=== PATIENT | female | born 1990 | race Caucasian/White ===

== ENCOUNTER 2020-08-01 14:25 | Outpatient (CLI) | payer OTHER, SELFPAY ==
--- NOTE | ~2020-08-01 | MMUS_ITS ---
EXAMINATION: MM diagnostic tang BI w james, US breast RT limited HISTORY: There's practitioner feels a lump in the upper outer quadrant of the right breast. TECHNIQUE: ML, MLO and craniocaudal 3-D tomosynthesis images of both breasts were performed and synth etic 2-D images were generated. Additional MLO and cc views with marker over lower outer quadrant lef t breast skin lesion. CAD analysis was submitted and interpreted. High resolution upper outer quadran t right breast ultrasound was performed. COMPARISON: None BREAST PARENCHYMAL COMPOSITION: The breasts are heterogeneously dense, which may obscure small masses . FINDINGS: MAMMOGRAPHIC FINDINGS: No suspicious mass or architectural distortion, malignant calcification, skin thickening or retractio n is detected. ULTRASOUND: There is no evidence of focal abnormal solid or cystic lesion in the upper outer quadrant of the righ t breast. IMPRESSION: 1. No mammographic evidence of malignancy 2. Routine annual mammographic screening is recommended beginning at age 40 BI-RADS Category 1: Negative Reviewed, dictated and finalized at location A. IMPRESSION: 1. No mammographic evidence of malignancy 2. Routine annual mammographic screening is recommended beginning at age 40 BI-RADS Category 1: Negative
== END 2020-08-01 14:26 | disposition home or self-care (01) ==
PROVIDERS: PCP Nurse Practitioner Obstetrics & Gynecology; Visit Provider Nurse Practitioner Obstetrics & Gynecology
DX: N63.11 Unspecified lump in the right breast, upper outer quadrant (principal); Z11.51 Encounter for screening for human papillomavirus (HPV); Z12.4 Encounter for screening for malignant neoplasm of cervix
CPT/HCPCS: 76642; 77062; 77066; G0279

== ENCOUNTER → 2021-02-07 00:31 | Outpatient (CLI) | payer OTHER, SELFPAY ==
[2021-02-07 17:04] LABS: SARS-CoV-2 RNA PCR Negative
== END ==
PROVIDERS: PCP Nurse Practitioner Obstetrics & Gynecology; Visit Provider Obstetrics & Gynecology Gynecologic Oncology
DX: Z01.812 Encounter for preprocedural laboratory examination (principal); Z20.822 Contact with and (suspected) exposure to COVID-19
CPT/HCPCS: C9803; U0003; U0005

== ENCOUNTER 2021-02-07 08:57 | Outpatient (CLI) | payer OTHER, SELFPAY ==
[2021-02-07 09:24] LABS: Hematocrit 37.8 % (37.0-47.0); Hemoglobin 12.4 g/dL (12.0-15.0); Mean Corpuscular HGB Conc 32.8 g/dl (32-36); Mean Corpuscular Hemoglobin 29.2 pg (26-34); Mean Corpuscular Volume 89.2 fl (80-100); Mean Platelet Volume 10.6 fl (7.4-10.4); Platelet Count Result 200 k/mm3 (150-375); Red Blood Count 4.24 M/mm3 (4.2-5.4); Red Cell Distribution Width 13.1 % (11.5-14.5); White Blood Count 4.6 K/mm3 (4.5-10.0)
== END 2021-02-07 08:58 | disposition home or self-care (01) ==
LOC: ANHLAB 08:59
PROVIDERS: PCP Nurse Practitioner Obstetrics & Gynecology; Visit Provider Obstetrics & Gynecology Gynecologic Oncology
DX: Z01.812 Encounter for preprocedural laboratory examination (principal); N92.0 Excessive and frequent menstruation with regular cycle; Z30.2 Encounter for sterilization
CPT/HCPCS: 36415; 85027; 86850; 86900; 86901; C9803; U0003; U0005

== ENCOUNTER 2021-02-10 02:41 | Day surgery (SDC) | payer OTHER, SELFPAY ==
[2021-02-03 09:40] VITALS: BMI 21.9
[2021-02-10] VITALS (8 sets, daily range): BP systolic 100–114; BP diastolic 47–72; PULSE 59–109; RESP 12–19; TEMP 36.4; O2SAT 100
[2021-02-10] MEDS: ACETAMINOPHEN 500 MG TABLET 1000 MG PO (11:23)
[2021-02-10] MEDS: GABAPENTIN 300 MG CAPSULE PO (11:23)
[2021-02-10] MEDS: LACTATED RINGERS 1,000 ML 30 ML IV CONT ×2 (11:49→15:11)
--- NOTE | 2021-02-10 12:09 | WPDHPUPDATE1 ---
History and Physical Update Update Date/Time: 02/10/21 12:09 History and Physical has been reviewed, including an updated exam of the patient. There are NO changes in the patient's condition. Risks, benefits, and alternatives have been discussed and questions answered. Patient agrees to proceed with procedure.
--- NOTE | 2021-02-10 12:36 | PM.IMHP ---
H&P: HPI History of Present Illness Date/Time: 02/10/21 12:36 Chief Complaint: I'm here for my surgery Narrative: Patient presents desiring permanent sterilization and treatment for heavy periods. Review of Systems Review of Systems: All systems reviewed & are unremarkable except as noted in HPI and below PMFSH Past Medical History Medical History (Updated 02/10/21 @ 12:38 by Gilda Arambula DO) Heavy menstrual bleeding Social History Social History Smoking status: Never smoker Alcohol intake: never Substance use: never Substance use type: does not use Living arrangements: with family Spiritual care concerns: No Meds Home Medications and Allergies Home Medications Medication Instructions Recorded Confirmed Type No Home Medications 02/03/21 02/10/21 History Allergies Allergy/AdvReac Type Severity Reaction Status Date / Time No Known Allergies Allergy Verified 02/10/21 11:20 Vital Signs Vital Signs - 24 hr 02/10/21 11:35 Temperature 36.4 C L Pulse Rate 68 Respiratory Rate 16 Blood Pressure 100/64 Pulse Oximetry 100 Assessment and Plan Assessment and plan (1) Admission for sterilization: Code(s): Z30.2 - Encounter for sterilization Status: Acute (2) Heavy menstrual bleeding: Code(s): N92.0 - Excessive and frequent menstruation with regular cycle Status: Acute Assessment and Plan: Diagnostic laparoscopy, bilateral salpingectomy, hysteroscopy, D&C with Novasure ablation
--- NOTE | 2021-02-10 12:44 | P.PNAN_ITS ---
Anes - Initial Pre Proc Eval Procedure: Operation Date: 02/10/21 13:30 Proposed Procedures p Hysteroscopy, Dilation and Curettage, Endometrial Novasure Ablation - Gilda Arambula DO s Diagnostic Laparoscopy, Bilateral Salpingectomy - Gilda Arambula DO Date/Time: 02/10/21 12:44 Surgeon: Gilda Arambula DO Pre Op Diagnosis: Desired Sterility, Heavy Menstrual Bleeding Patient Data Age: 30 Gender: F Height: 1.57 m Weight: 55.1 kg Last Vital Signs Temp 97.5 F L 02/10/21 11:35 Pulse 68 02/10/21 11:35 Resp 16 02/10/21 11:35 BP 100/64 02/10/21 11:35 Pulse Ox 100 02/10/21 11:35 Allergies Allergy/AdvReac Type Severity Reaction Status Date / Time No Known Allergies Allergy Verified 02/10/21 11:20 Home Medications Medication Instructions Recorded Confirmed Type No Home Medications 02/03/21 02/10/21 History Patient hx anesthesia problems: none Family hx anesthesia problems: none Results Review: All pre-operative results and documents have been reviewed as part of the pre-operative evaluation. [facility] Past Medical History Medical History (Updated 02/10/21 @ 12:45 by Raul Cote MD) Healthy adult Heavy menstrual bleeding Social History Social History Smoking status: Never smoker Alcohol intake: never Substance use: never Substance use type: does not use Living arrangements: with family Spiritual care concerns: No Anes - Eval Final PreProcedure Day of Procedure 02/10/21 12:44 Patient weight: normal Heart: regular rate and rhythm Lungs: clear to auscultation Airway: Mallampati scale class II Neurological: alert and oriented Last oral intake: >/= 8 hours ASA classification: I Emergent: no Anesthetic plan: proceed Anesthesia type and monitoring: general GIVS and standard monitoring Results Review: All pre-operative results and documents have been reviewed as part of the pre-operative evaluation. Informed Consent: The patient's anesthetic plan and its attendant risks and benefits were discussed with the patient/family/POA. Questions were solicited and answers provided to the satisfaction of the patient/family/POA.
--- NOTE | 2021-02-10 13:12 | SUR.PREOP ---
Resting without complaints or needs. Voices understanding of delay.
[2021-02-10] MEDS: BUPIVACAINE HCL 0.25% PF 30 ML VIAL INFILTRATE (14:43)
--- NOTE | 2021-02-10 15:08 | W.PM.PROC2 ---
Procedure Note - Detailed Date of Procedure 02/10/21 Pre-op Diagnosis Desired Sterility, Heavy Menstrual Bleeding Post-op Diagnosis same Procedure Performed Diagnostic laparoscopy, bilateral salpingectomy, hysteroscopy, D&C, Novasure ablation Surgeon Gilda Arambula DO [employer] Michelle Anesthesia general Indications Heavy menstrual bleeding, desires permanent sterilization Findings Normal appearing vulva and vaginal canal. Normal, small cervix. Internally, the bowel and pelvic organs were unremarkable. There was a single endometriotic looking bleb on the posterior side of the left broad ligament. There were also some fibrotic type areas on the left sidewall but no significant adhesions or lesions. Description of Procedure The patient was taken to the operating room where she was placed under general anesthesia. She was prepped and draped in the dorsal lithotomy position. No preoperative antibiotics were indicated. A timeout was performed. A peter was placed. A speculum was placed in the vagina and the cervix visualized. The anterior lip was grasped with a long Allis clamp. A Kroner uterine manipulator was placed. Gloves were changed and attention was then turned to the abdomen. The skin above the umbilicus was grasped with penetrating towel clamps. The area was injected and incised. A Veress needle was placed and a saline water drop test confirmed intraperitoneal placement. CO2 insufflation was started and the abdomen was brought up to 12 mm Hg. The Veress needle was then replaced with an Optiview trocar and there was no evidence of bowel or vascular injury. The patient was placed in steep Trendelenburg. Additional trocar sites were identified, injected and incised. 2 additional 5 mm trocars were introduced under direct visualization. The right tube was elevated with a grasper and cauterized and transected off. It was passed off through the assist port. The left tube was removed in the same fashion. The dark bleb noted as above was cauterized. The instruments and trocars were removed. The CO2 was allowed to escape. The incisions were closed with 4-0 subcuticular monocryl and steri-strips. The uterine manipulator was removed and the cervix dilated up to accommodate the myosure scope. The hysteroscope was introduced and the uterine cavity was noted to be long but of normal contour and shape. The uterus sounded to 12 cm. The cervix was 5.5 cm. A curettage was performed. The Novasure was then introduced and was activated at 86 rahman for 66 seconds. The device was removed and allowed to cool. All fluid and clots were wiped clean of the uterine cavity. The patient was taken to the recovery room in stable condition. All instrument and sponge counts were correct at the conclusion of the procedure. Implants None Estimated Blood Loss 10 IV Fluids 1,000 Urine Output 20 Drains No Packing No Pathology yes Complications No immediate complications Condition stable Disposition PACU
[2021-02-10] MEDS: fentaNYL CITRATE INJ (*CRX) 100 MCG/2 ML VIAL 25 MCG IV PUSH (15:46)
--- NOTE | 2021-02-16 07:24 | WPDHPUPDATE1 ---
History and Physical Update Update Date/Time: 02/16/21 07:24 History and Physical has been reviewed, including an updated exam of the patient. There are NO changes in the patient's condition. Risks, benefits, and alternatives have been discussed and questions answered. Patient agrees to proceed with procedure.
== END 2021-02-10 16:51 | disposition home or self-care (01) ==
PROVIDERS: PCP Nurse Practitioner Obstetrics & Gynecology; Visit Provider Obstetrics & Gynecology Gynecologic Oncology
PROC: 0U5B8ZZ Destruction of Endometrium, Via Natural or Artificial Opening Endoscopic (ICD-10-PCS; CPT 58563; principal; 2021-02-10 13:30)
PROC: (CPT 49320; 2021-02-10 13:30)
DX: Z30.2 Encounter for sterilization (principal); N92.0 Excessive and frequent menstruation with regular cycle
CPT/HCPCS: 58563; 58661; 88302; 88305; A9270; J0330; J1100; J2250; J2370; J2405; J2704; J3010; J7030; J7120